=== PATIENT | male | born 1960 | race Caucasian/White ===

== ENCOUNTER 2019-06-16 14:41 | Emergency (ER) | payer SELFPAY ==
[~2019-06-16] VITALS: Ht 170.2 cm; Wt 95.0 kg
[2019-06-16 17:07] VITALS: BP 123/83
== END 2019-06-16 17:08 | disposition home or self-care (01) ==
LOC: ER 14:47
DX: R04.0 Epistaxis (principal)
CPT/HCPCS: 99282

== ENCOUNTER 2020-08-05 09:19 | Emergency (ER) | payer MEDICAID ==
[~2020-08-05] VITALS: Ht 167.6 cm; Wt 73.0 kg
[2020-08-05] MEDS ORDERED: CYCLOBENZAPRINE 10MG TABLET PO ONE (09:45)
[2020-08-05] MEDS ORDERED: KETOROLAC 30MG/ML VIAL IM ONE (09:45)
[2020-08-05 10:24] VITALS: BP 132/79
== END 2020-08-05 10:25 | disposition home or self-care (01) ==
LOC: ER 09:19
DX: M25.511 Pain in right shoulder (principal)
CPT/HCPCS: 73030; 96372; 99283; J1885

== ENCOUNTER 2020-08-07 15:02 | Emergency (ER) | payer MEDICAID ==
[~2020-08-07] VITALS: Ht 167.6 cm; Wt 75.0 kg
[2020-08-07 15:28] VITALS: BP 142/85
== END 2020-08-07 16:52 | disposition home or self-care (01) ==
LOC: ER 15:03
DX: Z02.89 Encounter for other administrative examinations (principal); Z88.0 Allergy status to penicillin; Z88.3 Allergy status to other anti-infective agents
CPT/HCPCS: 99281

== ENCOUNTER 2021-04-14 09:23 | Emergency (ER) | payer MEDICAID ==
[~2021-04-14] VITALS: Ht 170.2 cm; Wt 84.0 kg
[2021-04-14] MEDS ORDERED: ACETAMINOPHEN 325MG TABLET PO ONE (09:45)
[2021-04-14 10:00] VITALS: BP 120/82
[2021-04-14] MEDS ORDERED: ALBU6.7H9 INH (10:52)
[2021-04-14] MEDS ORDERED: AZIT250T12 MT (10:52)
[2021-04-14] MEDS ORDERED: IBUP-2030 MT (10:52)
[2021-04-14] MEDS ORDERED: DEX4 MT (10:52)
== END 2021-04-14 11:45 | disposition home or self-care (01) ==
LOC: ER 09:23
DX: U07.1 COVID-19 (principal); J12.82 Pneumonia due to coronavirus disease 2019; R07.89 Other chest pain; Z88.0 Allergy status to penicillin
CPT/HCPCS: 71045; 93005; 99285; C9803; U0003; U0005; Z7610

== ENCOUNTER 2021-04-18 08:04 | Inpatient (IN) | payer MEDICAID, OTHER ==
[~2021-04-18] VITALS: Ht 165.1 cm; Wt 99.8 kg
[~2021-04-18 08:04] MED LIST: ALBU6.7H9 INH; AZIT250T12 MT; DEX4 MT; IBUP-2030 MT
[2021-04-18] MEDS ORDERED: ACETAMINOPHEN 325MG TABLET PO STA (08:24)
[2021-04-18 09:02] LABS: BASOPHILS % 0.3 % (0.0-2.0); HEMATOCRIT. 41.6 % (42.0-52.0); HEMOGLOBIN. 14.4 g/dL (14.0-18.0); LYMPHOCYTES % 9.8 % (20.0-50.0); MEAN CORPUSCULAR HEMOGLOBIN 31.2 pg (28.0-32.0); MEAN CORPUSCULAR VOLUME 90.3 fL (80.0-94.0); MEAN PLATELET VOLUME 9.2 fl (7.4-10.4); MONOCYTES % 6.7 % (2.0-8.0); NEUTROPHILS % 83.2 % (40.0-76.0); PLATELET 208 x1000/uL (130-400); RED CELL DISTRIBUTION WIDTH 12.8 % (11.6-14.6)
[2021-04-18 09:12] LABS: CHLORIDE 102 mEq/L (98-107)
[2021-04-18] MEDS ORDERED: ACETAMINOPHEN 500MG TABLET PO NR (09:15)
[2021-04-18 09:20] LABS: CREATINE KINASE 30 IU/L (39-308)
[2021-04-18 09:35] LABS: BG BASE EXCESS 1.4 mmol/L (-2.0-2.0); BG CARBOXYHEMOGLOBIN 1.3 % (0.5-1.5); BG DEOXYHEMOGLOBIN 4.5 % (0.0-5.0); BG FRACTION INSPIRED OXYGEN 32; BG HCO3 ACT 25.2 mmol/L (22.0-26.0); BG METHEMOGLOBIN 0.1 % (0.0-1.5); BG OXYGEN SATURATION 95.4 % (92.0-98.5); BG OXYHEMOGLOBIN 94.1 % (94.0-97.0); BG PCO2 37.3 mmHg (35.0-45.0); BG PH 7.447 (7.350-7.450); BG PO2 79.8 mmHg (75.0-100.0); BG SAMPLE SITE RIGHT RADIAL; BG TOTAL HEMOGLOBIN 14.4 g/dL (12.0-18.0); BG VENT MODE NASAL CANNULA
[2021-04-18 11:58] LABS: CLARITY URINE CLEAR (CLEAR); COLOR URINE YELLOW (YELLOW); KETONES URINE 3+ (NEGATIVE); LEUKOCYTE ESTERASE URINE NEGATIVE (NEGATIVE); NITRITE URINE NEGATIVE (NEGATIVE); OCCULT BLOOD URINE NEGATIVE (NEGATIVE); PH URINE 5.5 (4.5-8.0); PROTEIN URINE 1+ (NEGATIVE); SPECIFIC GRAVITY URINE 1.044 (1.005-1.030)
[2021-04-18] MEDS ORDERED: DOCUSATE SODIUM 100MG CAPSULE PO PRN (15:00)
[2021-04-18] MEDS ORDERED: LORAZEPAM 0.5MG TABLET PO PRN (15:00)
[2021-04-18] MEDS ORDERED: ONDANSETRON HCL 4MG/2ML INJ IV PRN (15:00)
[2021-04-18] MEDS ORDERED: AZITHROMYCIN 500 MG in DEXT 5% WATER 250 ML IV SCH (15:00)
[2021-04-18] MEDS ORDERED: HYDROCODONE/APAP 7.5/325MG 1 TAB TABLET PO PRN (15:00)
[2021-04-18] MEDS ORDERED: NITROGLYCERIN 0.4MG TABLET SL SL PRN (15:00)
[2021-04-18] MEDS ORDERED: CLONIDINE 0.1MG TABLET PO PRN (15:00)
[2021-04-18] MEDS ORDERED: NALOXONE HCL 0.4MG/ML VIAL IV PRN (15:00)
[2021-04-18] MEDS ORDERED: CEFTRIAXONE 1 G PREMIX 50 ML IV NR (15:00)
[2021-04-18 15:05] LABS: D-DIMER 1.07 mg/L FEU (<0.50); INR 1.1; PROTHROMBIN TIME 11.3 sec (9.6-11.0)
[2021-04-18] MEDS ORDERED: ALBUTEROL 6.7GM HFA INHALER ORI PRN (16:00)
[2021-04-18 16:03] VITALS: BP 143/83
[2021-04-18] MEDS: DEXAMETHASONE 10 MG/ML VIAL IV SCH (16:15)
[2021-04-18] MEDS: ENOXAPARIN 40MG/0.4ML SYR SUBCUT SCH (16:15)
[2021-04-18 16:53] VITALS: BP 143/83
[2021-04-18] MEDS ORDERED: DEXTROSE 50% WATER 50ML SYRINGE IV PRN ×2 (17:00→21:45)
[2021-04-18] MEDS: CEFTRIAXONE 1,000 MG in DEXTROSE 5% WATER 50 ML IV SCH (17:34)
[2021-04-18] MEDS ORDERED: BLOOD SUGAR DIAGNOSTIC STRIP TEST SCH (17:40)
[2021-04-18] MEDS: AZITHROMYCIN 500 MG in DEXT 5% WATER 250 ML IV SCH (17:46)
[2021-04-18] MEDS ORDERED: INSULIN LISPRO 100 UNITS/ML SUBCUT SCH (18:10)
[2021-04-18 20:00] VITALS: BP 146/87
[2021-04-18] MEDS ORDERED: INSULIN GLARGINE UD 100 UNITS/ML SYR SUBCUT SCH (23:00)
[2021-04-19] VITALS: BP 148/83
[2021-04-19 03:52] LABS: CHLORIDE 107 mEq/L (98-107)
[2021-04-19 03:54] LABS: HEMATOCRIT. 41.4 % (42.0-52.0); MEAN CORPUSCULAR VOLUME 91.7 fL (80.0-94.0); MEAN PLATELET VOLUME 8.9 fl (7.4-10.4); PLATELET 230 x1000/uL (130-400); RED BLOOD CELL COUNT 4.52 mill/uL (4.7-6.1); RED CELL DISTRIBUTION WIDTH 12.7 % (11.6-14.6)
[2021-04-19 04:00] VITALS: BP 111/66
[2021-04-19] MEDS: BLOOD SUGAR DIAGNOSTIC STRIP TEST SCH ×4 (07:22→21:00)
[2021-04-19 08:00] VITALS: BP 129/78
[2021-04-19] MEDS: DEXAMETHASONE 10 MG/ML VIAL IV SCH (08:05)
[2021-04-19] MEDS: INSULIN LISPRO 100 UNITS/ML SUBCUT SCH ×4 (08:06→22:06)
[2021-04-19] MEDS ORDERED: CEFTRIAXONE 1,000 MG in DEXTROSE 5% WATER 50 ML IV SCH (11:00)
[2021-04-19 12:00] VITALS: BP 143/91
[2021-04-19 12:31] LABS: PLATELET ESTIMATE NORMAL
[2021-04-19] MEDS ORDERED: ERYT1OIN6 EACHEYE (13:06)
[2021-04-19] MEDS ORDERED: METH2.5T PO (13:06)
[2021-04-19] MEDS ORDERED: OMEP20CA14 PO (13:06)
[2021-04-19] MEDS ORDERED: SULF500T8 PO (13:06)
[2021-04-19] MEDS ORDERED: FOLI-43 PO (13:06)
[2021-04-19] MEDS ORDERED: CYCL30DR EACHEYE (13:06)
[2021-04-19] MEDS ORDERED: ATOR20TA65 PO (13:06)
[2021-04-19] MEDS ORDERED: DICL25TA2 PO (13:06)
[2021-04-19] MEDS: ENOXAPARIN 40MG/0.4ML SYR SUBCUT SCH (14:05)
[2021-04-19 16:00] VITALS: BP 150/92
[2021-04-19] MEDS: CEFTRIAXONE 1,000 MG in DEXTROSE 5% WATER 50 ML IV SCH (16:32)
[2021-04-19] MEDS: BENZONATATE 100MG CAPSULE PO PRN (17:31)
[2021-04-19] MEDS: AZITHROMYCIN 500 MG in DEXT 5% WATER 250 ML IV SCH (17:32)
[2021-04-19 20:00] VITALS: BP 144/82
[2021-04-19] MEDS: ACETAMINOPHEN 325MG TABLET PO PRN (22:05)
[2021-04-19] MEDS: INSULIN GLARGINE UD 100 UNITS/ML SYR SUBCUT SCH (22:07)
[2021-04-20] VITALS: BP 142/85
[2021-04-20 04:00] VITALS: BP 153/96
[2021-04-20] MEDS: BLOOD SUGAR DIAGNOSTIC STRIP TEST SCH ×4 (07:40→20:22)
[2021-04-20 08:00] VITALS: BP 159/82
[2021-04-20] MEDS: DEXAMETHASONE 10 MG/ML VIAL IV SCH (08:36)
[2021-04-20] MEDS: INSULIN LISPRO 100 UNITS/ML SUBCUT SCH ×4 (08:36→20:43)
[2021-04-20] MEDS: BENZONATATE 100MG CAPSULE PO PRN (09:31)
[2021-04-20] MEDS: INSULIN GLARGINE UD 100 UNITS/ML SYR SUBCUT SCH ×2 (09:36→21:01)
[2021-04-20] MEDS: ENOXAPARIN 40MG/0.4ML SYR SUBCUT SCH (15:07)
[2021-04-20] MEDS: CEFTRIAXONE 1,000 MG in DEXTROSE 5% WATER 50 ML IV SCH (15:18)
[2021-04-20 16:00] VITALS: BP 130/93
[2021-04-20] MEDS: AZITHROMYCIN 500 MG in DEXT 5% WATER 250 ML IV SCH (17:40)
[2021-04-20 20:00] VITALS: BP 136/79
[2021-04-20] MEDS ORDERED: INSULIN LISPRO 100 UNITS/ML SUBCUT NR (22:00)
[2021-04-21] VITALS: BP 146/91
[2021-04-21 04:00] VITALS: BP 142/75
[2021-04-21 07:07] LABS: BASOPHILS % 0.2 % (0.0-2.0); HEMATOCRIT. 41.3 % (42.0-52.0); HEMOGLOBIN. 14.1 g/dL (14.0-18.0); LYMPHOCYTES % 8.6 % (20.0-50.0); MEAN CORPUSCULAR HEMOGLOBIN 30.6 pg (28.0-32.0); MEAN CORPUSCULAR VOLUME 89.8 fL (80.0-94.0); MEAN PLATELET VOLUME 9.3 fl (7.4-10.4); MONOCYTES % 8.9 % (2.0-8.0); NEUTROPHILS % 82.3 % (40.0-76.0); PLATELET 299 x1000/uL (130-400); RED BLOOD CELL COUNT 4.61 mill/uL (4.7-6.1); RED CELL DISTRIBUTION WIDTH 12.7 % (11.6-14.6)
[2021-04-21] MEDS: BLOOD SUGAR DIAGNOSTIC STRIP TEST SCH ×4 (07:40→21:25)
[2021-04-21 07:55] LABS: CHLORIDE 106 mEq/L (98-107)
[2021-04-21 08:00] VITALS: BP 109/68
[2021-04-21] MEDS: INSULIN LISPRO 100 UNITS/ML SUBCUT SCH ×4 (08:54→21:28)
[2021-04-21] MEDS: DEXAMETHASONE 10 MG/ML VIAL IV SCH (09:43)
[2021-04-21] MEDS: INSULIN GLARGINE UD 100 UNITS/ML SYR SUBCUT SCH ×2 (10:43→21:29)
[2021-04-21 12:00] VITALS: BP 132/78
[2021-04-21 16:00] VITALS: BP 144/93
[2021-04-21] MEDS: CEFTRIAXONE 1,000 MG in DEXTROSE 5% WATER 50 ML IV SCH (16:47)
[2021-04-21] MEDS: AZITHROMYCIN 500 MG in DEXT 5% WATER 250 ML IV SCH (17:37)
[2021-04-21] MEDS: ENOXAPARIN 30MG/0.3ML SYR SUBCUT SCH (17:56)
[2021-04-21 20:00] VITALS: BP 140/87
[2021-04-22] VITALS: BP 137/86
[2021-04-22 04:00] VITALS: BP 132/88
[2021-04-22 06:00] LABS: BASOPHILS % 0.4 % (0.0-2.0); HEMATOCRIT. 44.2 % (42.0-52.0); HEMOGLOBIN. 14.8 g/dL (14.0-18.0); LYMPHOCYTES % 11.4 % (20.0-50.0); MEAN CORPUSCULAR HEMOGLOBIN 30.8 pg (28.0-32.0); MEAN PLATELET VOLUME 9.3 fl (7.4-10.4); MONOCYTES % 9.5 % (2.0-8.0); NEUTROPHILS % 78.7 % (40.0-76.0); PLATELET 301 x1000/uL (130-400); RED CELL DISTRIBUTION WIDTH 12.6 % (11.6-14.6)
[2021-04-22 06:07] LABS: CHLORIDE 104 mEq/L (98-107)
[2021-04-22] MEDS: ENOXAPARIN 30MG/0.3ML SYR SUBCUT SCH ×2 (06:34→17:23)
[2021-04-22] MEDS: BLOOD SUGAR DIAGNOSTIC STRIP TEST SCH ×4 (07:14→21:56)
[2021-04-22 08:00] VITALS: BP 140/80
[2021-04-22] MEDS: DEXAMETHASONE 10 MG/ML VIAL IV SCH (08:56)
[2021-04-22] MEDS: BENZONATATE 100MG CAPSULE PO PRN ×2 (08:57→23:25)
[2021-04-22] MEDS: INSULIN LISPRO 100 UNITS/ML SUBCUT SCH ×4 (08:58→22:01)
[2021-04-22 09:03] LABS: BG BASE EXCESS 4.2 mmol/L (-2.0-2.0); BG CARBOXYHEMOGLOBIN 0.2 % (0.5-1.5); BG DEOXYHEMOGLOBIN 8.6 % (0.0-5.0); BG HCO3 ACT 28.5 mmol/L (22.0-26.0); BG OXYGEN SATURATION 91.4 % (92.0-98.5); BG OXYHEMOGLOBIN 91.2 % (94.0-97.0); BG PCO2 41.3 mmHg (35.0-45.0); BG PH 7.456 (7.350-7.450); BG PO2 61.3 mmHg (75.0-100.0); BG SAMPLE SITE RIGHT RADIAL; BG TOTAL HEMOGLOBIN 15.8 g/dL (12.0-18.0); BG VENT MODE MASK - BIPAP
[2021-04-22] MEDS: INSULIN GLARGINE UD 100 UNITS/ML SYR SUBCUT SCH ×2 (10:22→22:00)
[2021-04-22 12:00] VITALS: BP 136/86
[2021-04-22 16:00] VITALS: BP 146/95
[2021-04-22] MEDS: CEFTRIAXONE 1,000 MG in DEXTROSE 5% WATER 50 ML IV SCH (16:45)
[2021-04-22] MEDS: AZITHROMYCIN 500 MG in DEXT 5% WATER 250 ML IV SCH (17:30)
[2021-04-22 20:00] VITALS: BP 153/92
[2021-04-23] VITALS: BP 123/81
[2021-04-23 04:00] VITALS: BP 124/83
[2021-04-23] MEDS: ENOXAPARIN 30MG/0.3ML SYR SUBCUT SCH ×2 (05:34→17:48)
[2021-04-23 06:15] LABS: CHLORIDE 102 mEq/L (98-107)
[2021-04-23 06:21] LABS: BASOPHILS % 0.2 % (0.0-2.0); EOSINOPHILS % 0.1 % (0.0-5.0); HEMATOCRIT. 43.1 % (42.0-52.0); HEMOGLOBIN. 14.7 g/dL (14.0-18.0); LYMPHOCYTES % 11.7 % (20.0-50.0); MEAN CORPUSCULAR VOLUME 90.8 fL (80.0-94.0); MEAN PLATELET VOLUME 9.5 fl (7.4-10.4); MONOCYTES % 6.1 % (2.0-8.0); NEUTROPHILS % 81.9 % (40.0-76.0); PLATELET 282 x1000/uL (130-400); RED BLOOD CELL COUNT 4.74 mill/uL (4.7-6.1); RED CELL DISTRIBUTION WIDTH 12.6 % (11.6-14.6)
[2021-04-23 08:00] VITALS: BP 114/65
[2021-04-23] MEDS: BLOOD SUGAR DIAGNOSTIC STRIP TEST SCH ×4 (08:36→21:00)
[2021-04-23] MEDS: INSULIN LISPRO 100 UNITS/ML SUBCUT SCH ×4 (08:38→21:23)
[2021-04-23] MEDS: DEXAMETHASONE 10 MG/ML VIAL IV SCH (08:38)
[2021-04-23] MEDS: INSULIN GLARGINE UD 100 UNITS/ML SYR SUBCUT SCH ×2 (10:55→21:23)
[2021-04-23 12:00] VITALS: BP 127/77
[2021-04-23] MEDS ORDERED: HYDROCODONE/ACETAMINOPHEN 5/325MG TABLET PO PRN (12:30)
[2021-04-23] MEDS: IVERMECTIN 3 MG TABLET PO SCH (12:43)
[2021-04-23 16:00] VITALS: BP 137/82
[2021-04-23 16:20] LABS: BG BASE EXCESS 3.6 mmol/L (-2.0-2.0); BG CARBOXYHEMOGLOBIN 0.1 % (0.5-1.5); BG DEOXYHEMOGLOBIN 7.7 % (0.0-5.0); BG FRACTION INSPIRED OXYGEN 100; BG HCO3 ACT 27.5 mmol/L (22.0-26.0); BG METHEMOGLOBIN 0.3 % (0.0-1.5); BG OXYGEN SATURATION 92.3 % (92.0-98.5); BG OXYHEMOGLOBIN 91.9 % (94.0-97.0); BG PCO2 39.5 mmHg (35.0-45.0); BG PH 7.461 (7.350-7.450); BG PO2 63.9 mmHg (75.0-100.0); BG SAMPLE SITE RIGHT RADIAL; BG TOTAL HEMOGLOBIN 14.6 g/dL (12.0-18.0); BG VENT MODE MASK - BIPAP
[2021-04-23 20:00] VITALS: BP 126/83
[2021-04-24] VITALS: BP 139/88
[2021-04-24 04:00] VITALS: BP 123/85
[2021-04-24] MEDS: ENOXAPARIN 30MG/0.3ML SYR SUBCUT SCH ×2 (06:08→17:18)
[2021-04-24 07:28] LABS: BASOPHILS % 0.3 % (0.0-2.0); EOSINOPHILS % 0.4 % (0.0-5.0); HEMATOCRIT. 41.2 % (42.0-52.0); LYMPHOCYTES % 11.8 % (20.0-50.0); MEAN CORPUSCULAR HEMOGLOBIN 30.5 pg (28.0-32.0); MEAN CORPUSCULAR VOLUME 89.8 fL (80.0-94.0); MONOCYTES % 4.5 % (2.0-8.0); PLATELET 257 x1000/uL (130-400); RED BLOOD CELL COUNT 4.59 mill/uL (4.7-6.1); RED CELL DISTRIBUTION WIDTH 12.3 % (11.6-14.6)
[2021-04-24] MEDS: BLOOD SUGAR DIAGNOSTIC STRIP TEST SCH ×4 (07:28→21:32)
[2021-04-24 07:42] LABS: CHLORIDE 101 mEq/L (98-107)
[2021-04-24 08:00] VITALS: BP 118/71
[2021-04-24] MEDS: DEXAMETHASONE 10 MG/ML VIAL IV SCH (08:10)
[2021-04-24] MEDS: IVERMECTIN 3 MG TABLET PO SCH (08:11)
[2021-04-24] MEDS: INSULIN LISPRO 100 UNITS/ML SUBCUT SCH ×4 (08:11→21:32)
[2021-04-24] MEDS: INSULIN GLARGINE UD 100 UNITS/ML SYR SUBCUT SCH ×2 (09:10→21:32)
[2021-04-24 12:00] VITALS: BP 140/83
[2021-04-24] MEDS ORDERED: INSULIN GLARGINE UD 100 UNITS/ML SYR SUBCUT SCH (14:30)
[2021-04-24 16:00] VITALS: BP 154/97
[2021-04-24 20:00] VITALS: BP 141/79
[2021-04-25] VITALS: BP 127/84
[2021-04-25 04:00] VITALS: BP 134/90
[2021-04-25] MEDS: ENOXAPARIN 30MG/0.3ML SYR SUBCUT SCH ×2 (06:20→17:31)
[2021-04-25] MEDS: BLOOD SUGAR DIAGNOSTIC STRIP TEST SCH ×4 (07:15→21:24)
[2021-04-25] MEDS: INSULIN LISPRO 100 UNITS/ML SUBCUT SCH ×4 (07:15→21:00)
[2021-04-25 08:00] VITALS: BP 135/84
[2021-04-25] MEDS: IVERMECTIN 3 MG TABLET PO SCH (08:40)
[2021-04-25] MEDS: DEXAMETHASONE 10 MG/ML VIAL IV SCH (08:41)
[2021-04-25] MEDS: INSULIN GLARGINE UD 100 UNITS/ML SYR SUBCUT SCH ×2 (09:37→22:04)
[2021-04-25] MEDS ORDERED: GUAIFENESIN-DM 200MG-20MG/10ML UDC PO PRN (11:30)
[2021-04-25 12:00] VITALS: BP 135/84
[2021-04-25] MEDS: BENZONATATE 100MG CAPSULE PO SCH ×2 (12:14→22:01)
[2021-04-25 16:00] VITALS: BP 143/73
[2021-04-25 20:00] VITALS: BP 123/81
[2021-04-26] VITALS: BP 134/88
[2021-04-26 04:00] VITALS: BP 104/80
[2021-04-26] MEDS: ENOXAPARIN 30MG/0.3ML SYR SUBCUT SCH ×2 (06:14→17:06)
[2021-04-26] MEDS: BENZONATATE 100MG CAPSULE PO SCH ×3 (06:14→21:19)
[2021-04-26 08:00] VITALS: BP 126/71
[2021-04-26] MEDS: INSULIN LISPRO 100 UNITS/ML SUBCUT SCH ×4 (08:10→21:19)
[2021-04-26] MEDS: BLOOD SUGAR DIAGNOSTIC STRIP TEST SCH ×4 (08:10→20:59)
[2021-04-26] MEDS: IVERMECTIN 3 MG TABLET PO SCH (08:54)
[2021-04-26] MEDS: DEXAMETHASONE 10 MG/ML VIAL IV SCH (10:59)
[2021-04-26] MEDS: INSULIN GLARGINE UD 100 UNITS/ML SYR SUBCUT SCH ×2 (11:04→22:36)
[2021-04-26 12:00] VITALS: BP 147/96
[2021-04-26] MEDS: ACETAMINOPHEN 325MG TABLET PO PRN (13:07)
[2021-04-26 16:00] VITALS: BP 118/82
[2021-04-26 20:00] VITALS: BP 134/85
[2021-04-27 00:29] VITALS: BP 136/81
[2021-04-27 04:00] VITALS: BP 114/70
[2021-04-27] MEDS: ENOXAPARIN 30MG/0.3ML SYR SUBCUT SCH ×2 (05:30→17:06)
[2021-04-27] MEDS: BENZONATATE 100MG CAPSULE PO SCH ×3 (05:30→21:39)
[2021-04-27 06:11] LABS: HEMOGLOBIN. 14.4 g/dL (14.0-18.0); MEAN CORPUSCULAR HEMOGLOBIN 30.5 pg (28.0-32.0); MEAN CORPUSCULAR VOLUME 91.2 fL (80.0-94.0); MEAN PLATELET VOLUME 9.2 fl (7.4-10.4); PLATELET 350 x1000/uL (130-400); RED BLOOD CELL COUNT 4.71 mill/uL (4.7-6.1); RED CELL DISTRIBUTION WIDTH 12.6 % (11.6-14.6)
[2021-04-27 06:21] LABS: CHLORIDE 105 mEq/L (98-107)
[2021-04-27] MEDS: BLOOD SUGAR DIAGNOSTIC STRIP TEST SCH ×4 (07:36→20:50)
[2021-04-27 08:00] VITALS: BP 119/73
[2021-04-27] MEDS: DEXAMETHASONE 10 MG/ML VIAL IV SCH (08:34)
[2021-04-27] MEDS: IVERMECTIN 3 MG TABLET PO SCH (08:34)
[2021-04-27] MEDS: INSULIN LISPRO 100 UNITS/ML SUBCUT SCH ×4 (08:34→20:50)
[2021-04-27 08:45] LABS: BG BASE EXCESS 2.5 mmol/L (-2.0-2.0); BG CARBOXYHEMOGLOBIN 0.8 % (0.5-1.5); BG DEOXYHEMOGLOBIN 3.9 % (0.0-5.0); BG FRACTION INSPIRED OXYGEN 100; BG HCO3 ACT 26.7 mmol/L (22.0-26.0); BG METHEMOGLOBIN 0.1 % (0.0-1.5); BG OXYGEN SATURATION 96.1 % (92.0-98.5); BG OXYHEMOGLOBIN 95.2 % (94.0-97.0); BG PCO2 40.1 mmHg (35.0-45.0); BG PH 7.442 (7.350-7.450); BG PO2 82.4 mmHg (75.0-100.0); BG SAMPLE SITE RIGHT RADIAL; BG TOTAL HEMOGLOBIN 15.1 g/dL (12.0-18.0); BG TOTAL RESPIRATORY RATE 38 b/min; BG VENT MODE MASK - BIPAP
[2021-04-27] MEDS: INSULIN GLARGINE UD 100 UNITS/ML SYR SUBCUT SCH ×2 (11:26→21:40)
[2021-04-27 12:00] VITALS: BP 126/75
[2021-04-27 16:00] VITALS: BP 118/76
[2021-04-27 20:00] VITALS: BP 127/77
[2021-04-27] MEDS: CEFEPIME 2,000 MG in DEXT 5% WATER 100 ML IV SCH (20:50)
[2021-04-28] VITALS (8 sets, daily range): BP systolic 108–166; BP diastolic 66–96
[2021-04-28 00:08] LABS: PLATELET ESTIMATE NORMAL
[2021-04-28] MEDS: BLOOD SUGAR DIAGNOSTIC STRIP TEST SCH ×4 (05:36→20:38)
[2021-04-28] MEDS: BENZONATATE 100MG CAPSULE PO SCH ×3 (05:36→22:09)
[2021-04-28] MEDS: ENOXAPARIN 30MG/0.3ML SYR SUBCUT SCH ×2 (05:36→17:28)
[2021-04-28] MEDS: INSULIN LISPRO 100 UNITS/ML SUBCUT SCH ×4 (07:16→20:39)
[2021-04-28] MEDS: CEFEPIME 2,000 MG in DEXT 5% WATER 100 ML IV SCH ×2 (08:01→20:38)
[2021-04-28] MEDS: DEXAMETHASONE 10 MG/ML VIAL IV SCH (08:01)
[2021-04-28] MEDS: IVERMECTIN 3 MG TABLET PO SCH (08:01)
[2021-04-28] MEDS ORDERED: SUCCINYLCHOLINE CHLORIDE 200MG/10ML IV ONE (08:38)
[2021-04-28] MEDS ORDERED: ETOMIDATE 2MG/ML 10ML VIAL IV ONE (08:38)
[2021-04-28] MEDS: INSULIN GLARGINE UD 100 UNITS/ML SYR SUBCUT SCH ×2 (10:35→22:10)
[2021-04-28 22:29] LABS: BG BASE EXCESS 2.9 mmol/L (-2.0-2.0); BG CARBOXYHEMOGLOBIN 0.8 % (0.5-1.5); BG DEOXYHEMOGLOBIN 8.8 % (0.0-5.0); BG FRACTION INSPIRED OXYGEN 100; BG METHEMOGLOBIN 0.2 % (0.0-1.5); BG OXYGEN SATURATION 91.1 % (92.0-98.5); BG OXYHEMOGLOBIN 90.2 % (94.0-97.0); BG PCO2 44.5 mmHg (35.0-45.0); BG PH 7.417 (7.350-7.450); BG SAMPLE SITE RIGHT BRACHIAL; BG TOTAL HEMOGLOBIN 15.7 g/dL (12.0-18.0); BG TOTAL RESPIRATORY RATE 40 b/min; BG VENT MODE MASK - BIPAP
[2021-04-29] VITALS (49 sets, daily range): BP systolic 94–175; BP diastolic 30–116
[2021-04-29] MEDS: MIDAZOLAM HCL 100 MG in SODIUM CHLORIDE 0.9% 80 ML IV PRN (00:08)
[2021-04-29] MEDS: FENTANYL CITRATE/PF 2,500 MCG in SODIUM CHLORIDE 0.9% 200 ML IV PRN (00:30)
[2021-04-29 00:52] LABS: BG BASE EXCESS 0.6 mmol/L (-2.0-2.0); BG DEOXYHEMOGLOBIN 11.3 % (0.0-5.0); BG FRACTION INSPIRED OXYGEN 100; BG HCO3 ACT 26.9 mmol/L (22.0-26.0); BG METHEMOGLOBIN 0.2 % (0.0-1.5); BG OXYGEN SATURATION 88.6 % (92.0-98.5); BG OXYHEMOGLOBIN 87.5 % (94.0-97.0); BG PCO2 49.1 mmHg (35.0-45.0); BG PH 7.357 (7.350-7.450); BG PO2 59.2 mmHg (75.0-100.0); BG SAMPLE SITE RIGHT BRACHIAL; BG TOTAL RESPIRATORY RATE 35 b/min; BG VENT MODE VENT - AC
[2021-04-29] MEDS: ENOXAPARIN 30MG/0.3ML SYR SUBCUT SCH ×2 (05:22→18:30)
[2021-04-29] MEDS: BENZONATATE 100MG CAPSULE PO SCH (05:30)
[2021-04-29 05:56] LABS: HEMATOCRIT. 44.1 % (42.0-52.0); HEMOGLOBIN. 14.9 g/dL (14.0-18.0); MEAN CORPUSCULAR HEMOGLOBIN 30.7 pg (28.0-32.0); MEAN CORPUSCULAR VOLUME 90.8 fL (80.0-94.0); PLATELET 321 x1000/uL (130-400); RED BLOOD CELL COUNT 4.86 mill/uL (4.7-6.1)
[2021-04-29 06:02] LABS: CHLORIDE 102 mEq/L (98-107)
[2021-04-29] MEDS: BLOOD SUGAR DIAGNOSTIC STRIP TEST SCH ×5 (07:50→23:13)
[2021-04-29] MEDS: INSULIN LISPRO 100 UNITS/ML SUBCUT SCH ×5 (08:20→23:36)
[2021-04-29] MEDS: DEXAMETHASONE 10 MG/ML VIAL IV SCH (09:11)
[2021-04-29] MEDS: CEFEPIME 2,000 MG in DEXT 5% WATER 100 ML IV SCH ×2 (09:11→21:42)
[2021-04-29 09:12] LABS: BG BASE EXCESS 1.5 mmol/L (-2.0-2.0); BG DEOXYHEMOGLOBIN 10.9 % (0.0-5.0); BG FRACTION INSPIRED OXYGEN 100; BG METHEMOGLOBIN 0.2 % (0.0-1.5); BG OXYHEMOGLOBIN 87.9 % (94.0-97.0); BG PCO2 45.5 mmHg (35.0-45.0); BG PH 7.391 (7.350-7.450); BG PO2 59.8 mmHg (75.0-100.0); BG SAMPLE SITE RIGHT BRACHIAL; BG TOTAL HEMOGLOBIN 16.5 g/dL (12.0-18.0); BG TOTAL RESPIRATORY RATE 43 b/min; BG VENT MODE VENT - AC
[2021-04-29] MEDS ORDERED: LIDOCAINE HCL 1% 20ML VIAL (Pyxis) INJ ONE (10:05)
[2021-04-29] MEDS: DEXT 5%/0.9% NACL 1,000 ML IV SCH ×2 (11:11→23:33)
[2021-04-29] MEDS: INSULIN GLARGINE UD 100 UNITS/ML SYR SUBCUT SCH ×2 (11:12→22:32)
[2021-04-29 21:33] LABS: PLATELET ESTIMATE NORMAL
[2021-04-30] VITALS (49 sets, daily range): BP systolic 92–159; BP diastolic 34–83
[2021-04-30 05:56] LABS: HEMATOCRIT. 44.5 % (42.0-52.0); HEMOGLOBIN. 14.8 g/dL (14.0-18.0); MEAN CORPUSCULAR HEMOGLOBIN 30.6 pg (28.0-32.0); MEAN CORPUSCULAR VOLUME 92.1 fL (80.0-94.0); MEAN PLATELET VOLUME 9.7 fl (7.4-10.4); PLATELET 265 x1000/uL (130-400); RED BLOOD CELL COUNT 4.83 mill/uL (4.7-6.1); RED CELL DISTRIBUTION WIDTH 12.6 % (11.6-14.6)
[2021-04-30 06:03] LABS: CHLORIDE 111 mEq/L (98-107)
[2021-04-30] MEDS: BLOOD SUGAR DIAGNOSTIC STRIP TEST SCH ×3 (06:33→17:30)
[2021-04-30] MEDS: ENOXAPARIN 30MG/0.3ML SYR SUBCUT SCH ×2 (06:34→17:33)
[2021-04-30] MEDS: INSULIN LISPRO 100 UNITS/ML SUBCUT SCH ×3 (06:46→17:34)
[2021-04-30] MEDS: CEFEPIME 2,000 MG in DEXT 5% WATER 100 ML IV SCH (08:32)
[2021-04-30] MEDS: DEXAMETHASONE 10 MG/ML VIAL IV SCH (08:32)
[2021-04-30 09:42] LABS: BG CARBOXYHEMOGLOBIN 0.3 % (0.5-1.5); BG DEOXYHEMOGLOBIN 9.1 % (0.0-5.0); BG FRACTION INSPIRED OXYGEN 100; BG HCO3 ACT 23.3 mmol/L (22.0-26.0); BG METHEMOGLOBIN 0.3 % (0.0-1.5); BG OXYGEN SATURATION 90.8 % (92.0-98.5); BG OXYHEMOGLOBIN 90.3 % (94.0-97.0); BG PCO2 41.8 mmHg (35.0-45.0); BG PH 7.364 (7.350-7.450); BG PO2 64.8 mmHg (75.0-100.0); BG SAMPLE SITE RIGHT RADIAL; BG VENT MODE VENT - PRVC
[2021-04-30] MEDS: INSULIN GLARGINE UD 100 UNITS/ML SYR SUBCUT SCH ×2 (10:09→21:42)
[2021-04-30] MEDS: PANTOPRAZOLE SODIUM 40 MG/VIAL IV SCH (10:09)
[2021-04-30] MEDS: MIDAZOLAM HCL 100 MG in SODIUM CHLORIDE 0.9% 80 ML IV PRN (10:41)
[2021-04-30 11:57] LABS: PLATELET ESTIMATE NORMAL
[2021-04-30] MEDS ORDERED: SODIUM CHLORIDE 0.9% 1,000 ML IV SCH (12:15)
[2021-04-30] MEDS: FENTANYL CITRATE/PF 2,500 MCG in SODIUM CHLORIDE 0.9% 200 ML IV PRN (14:17)
[2021-04-30] MEDS: ACETAMINOPHEN 325MG TABLET PO PRN (15:27)
[2021-04-30 18:52] LABS: CHLORIDE 112 mEq/L (98-107)
[2021-04-30] MEDS: MEROPENEM 1,000 MG in SODIUM CHLORIDE 0.9% 100 ML IV SCH (21:18)
[2021-04-30] MEDS ORDERED: SODIUM POLYSTYRENE SULFONATE 15 G/60 ML BOT PO NR (23:00)
[2021-04-30] MEDS: SODIUM CHLORIDE 0.45% 1,000 ML IV SCH (23:09)
[2021-05-01] VITALS (48 sets, daily range): BP systolic 93–128; BP diastolic 64–80
[2021-05-01] MEDS: BLOOD SUGAR DIAGNOSTIC STRIP TEST SCH ×5 (00:29→23:47)
[2021-05-01] MEDS: INSULIN LISPRO 100 UNITS/ML SUBCUT SCH ×5 (00:34→23:47)
[2021-05-01] MEDS: ACETAMINOPHEN 325MG TABLET PO PRN (02:56)
[2021-05-01] MEDS: MEROPENEM 1,000 MG in SODIUM CHLORIDE 0.9% 100 ML IV SCH ×3 (04:46→20:42)
[2021-05-01 06:41] LABS: HEMATOCRIT. 42.1 % (42.0-52.0); HEMOGLOBIN. 14.2 g/dL (14.0-18.0); MEAN CORPUSCULAR VOLUME 92.2 fL (80.0-94.0); MEAN PLATELET VOLUME 9.9 fl (7.4-10.4); PLATELET 217 x1000/uL (130-400); RED BLOOD CELL COUNT 4.57 mill/uL (4.7-6.1); RED CELL DISTRIBUTION WIDTH 12.9 % (11.6-14.6)
[2021-05-01 06:50] LABS: CHLORIDE 115 mEq/L (98-107)
[2021-05-01] MEDS: ENOXAPARIN 30MG/0.3ML SYR SUBCUT SCH ×2 (07:05→18:10)
[2021-05-01 08:40] LABS: PLATELET ESTIMATE NORMAL
[2021-05-01 08:43] LABS: BG BASE EXCESS -1.6 mmol/L (-2.0-2.0); BG CARBOXYHEMOGLOBIN 0.9 % (0.5-1.5); BG DEOXYHEMOGLOBIN 12.4 % (0.0-5.0); BG FRACTION INSPIRED OXYGEN 100; BG HCO3 ACT 23.4 mmol/L (22.0-26.0); BG METHEMOGLOBIN 0.1 % (0.0-1.5); BG OXYGEN SATURATION 87.5 % (92.0-98.5); BG OXYHEMOGLOBIN 86.6 % (94.0-97.0); BG PCO2 40.8 mmHg (35.0-45.0); BG PH 7.377 (7.350-7.450); BG SAMPLE SITE RIGHT RADIAL; BG TOTAL HEMOGLOBIN 14.8 g/dL (12.0-18.0); BG VENT MODE AC/PRVC
[2021-05-01] MEDS: PANTOPRAZOLE SODIUM 40 MG/VIAL IV SCH (09:36)
[2021-05-01] MEDS: DEXAMETHASONE 10 MG/ML VIAL IV SCH (09:36)
[2021-05-01] MEDS: SODIUM CHLORIDE 0.45% 1,000 ML IV SCH ×2 (09:37→18:10)
[2021-05-01] MEDS: INSULIN GLARGINE UD 100 UNITS/ML SYR SUBCUT SCH ×2 (09:42→22:42)
[2021-05-01] MEDS ORDERED: SODIUM CHLORIDE 0.45% 250 ML IV ONE (11:45)
[2021-05-01] MEDS: MIDAZOLAM HCL 100 MG in SODIUM CHLORIDE 0.9% 80 ML IV PRN (12:45)
[2021-05-01 13:03] LABS: PHOSPHORUS 2.7 mg/dL (2.5-4.9)
[2021-05-01] MEDS: FENTANYL CITRATE/PF 2,500 MCG in SODIUM CHLORIDE 0.9% 200 ML IV PRN (18:37)
[2021-05-02] VITALS (70 sets, daily range): BP systolic 80–146; BP diastolic 51–94
[2021-05-02] MEDS: PHENYLEPHRINE 100 MG in DEXT 5% WATER 240 ML IV PRN ×2 (04:00→12:20)
[2021-05-02] MEDS: SODIUM CHLORIDE 0.45% 1,000 ML IV SCH ×3 (04:01→23:47)
[2021-05-02] MEDS: MEROPENEM 1,000 MG in SODIUM CHLORIDE 0.9% 100 ML IV SCH ×3 (04:04→20:29)
[2021-05-02] MEDS: MIDAZOLAM HCL 100 MG in SODIUM CHLORIDE 0.9% 80 ML IV PRN (04:38)
[2021-05-02] MEDS: BLOOD SUGAR DIAGNOSTIC STRIP TEST SCH ×4 (05:58→23:39)
[2021-05-02] MEDS: ENOXAPARIN 30MG/0.3ML SYR SUBCUT SCH ×2 (05:59→17:50)
[2021-05-02] MEDS: INSULIN LISPRO 100 UNITS/ML SUBCUT SCH ×4 (06:18→23:46)
[2021-05-02 06:58] LABS: HEMATOCRIT. 37.2 % (42.0-52.0); HEMOGLOBIN. 12.5 g/dL (14.0-18.0); MEAN CORPUSCULAR HEMOGLOBIN 31.2 pg (28.0-32.0); MEAN CORPUSCULAR VOLUME 92.7 fL (80.0-94.0); PLATELET 185 x1000/uL (130-400); RED BLOOD CELL COUNT 4.01 mill/uL (4.7-6.1); RED CELL DISTRIBUTION WIDTH 12.6 % (11.6-14.6)
[2021-05-02 07:01] LABS: CHLORIDE 113 mEq/L (98-107)
[2021-05-02 08:26] LABS: PLATELET ESTIMATE NORMAL
[2021-05-02] MEDS: PANTOPRAZOLE SODIUM 40 MG/VIAL IV SCH (09:18)
[2021-05-02] MEDS: DEXAMETHASONE 10 MG/ML VIAL IV SCH (09:18)
[2021-05-02 09:27] LABS: BG BASE EXCESS 2.7 mmol/L (-2.0-2.0); BG CARBOXYHEMOGLOBIN 0.4 % (0.5-1.5); BG DEOXYHEMOGLOBIN 5.3 % (0.0-5.0); BG FRACTION INSPIRED OXYGEN 90; BG HCO3 ACT 27.2 mmol/L (22.0-26.0); BG METHEMOGLOBIN 0.2 % (0.0-1.5); BG OXYGEN SATURATION 94.7 % (92.0-98.5); BG OXYHEMOGLOBIN 94.1 % (94.0-97.0); BG PCO2 41.6 mmHg (35.0-45.0); BG PH 7.433 (7.350-7.450); BG PO2 73.5 mmHg (75.0-100.0); BG SAMPLE SITE RIGHT RADIAL; BG VENT MODE PRVC-AC
[2021-05-02] MEDS: INSULIN GLARGINE UD 100 UNITS/ML SYR SUBCUT SCH ×2 (10:59→22:08)
[2021-05-02] MEDS: ACETAMINOPHEN 325MG TABLET PO PRN (13:15)
[2021-05-02] MEDS ORDERED: VANCOMYCIN 1,750 MG in DEXT 5% WATER 500 ML IV NR (20:00)
[2021-05-02] MEDS: FENTANYL CITRATE/PF 2,500 MCG in SODIUM CHLORIDE 0.9% 200 ML IV PRN (21:42)
[2021-05-03] VITALS (92 sets, daily range): BP systolic 85–139; BP diastolic 62–81
[2021-05-03] MEDS: MEROPENEM 1,000 MG in SODIUM CHLORIDE 0.9% 100 ML IV SCH ×3 (04:10→21:20)
[2021-05-03] MEDS: BLOOD SUGAR DIAGNOSTIC STRIP TEST SCH ×3 (05:27→18:27)
[2021-05-03] MEDS: ENOXAPARIN 30MG/0.3ML SYR SUBCUT SCH ×2 (05:35→18:32)
[2021-05-03] MEDS: INSULIN LISPRO 100 UNITS/ML SUBCUT SCH ×3 (05:35→18:33)
[2021-05-03 06:57] LABS: CHLORIDE 113 mEq/L (98-107); HEMATOCRIT. 35.9 % (42.0-52.0); HEMOGLOBIN. 11.7 g/dL (14.0-18.0); MEAN CORPUSCULAR HEMOGLOBIN 30.2 pg (28.0-32.0); MEAN CORPUSCULAR VOLUME 92.8 fL (80.0-94.0); PLATELET 144 x1000/uL (130-400); RED BLOOD CELL COUNT 3.86 mill/uL (4.7-6.1); RED CELL DISTRIBUTION WIDTH 12.8 % (11.6-14.6)
[2021-05-03 08:41] LABS: NUCLEATED RED BLOOD CELLS 1 /100 WBC
[2021-05-03 08:42] LABS: PLATELET ESTIMATE NORMAL
[2021-05-03] MEDS: VANCOMYCIN 1250MG in DEXTROSE 5% WATER 250ML IV SCH ×2 (08:42→21:20)
[2021-05-03] MEDS: DEXAMETHASONE 10 MG/ML VIAL IV SCH (08:42)
[2021-05-03] MEDS: PANTOPRAZOLE SODIUM 40 MG/VIAL IV SCH (08:42)
[2021-05-03 08:45] LABS: BG BASE EXCESS 2.9 mmol/L (-2.0-2.0); BG CARBOXYHEMOGLOBIN 0.4 % (0.5-1.5); BG DEOXYHEMOGLOBIN 4.3 % (0.0-5.0); BG FRACTION INSPIRED OXYGEN 100; BG HCO3 ACT 29.2 mmol/L (22.0-26.0); BG METHEMOGLOBIN 0.1 % (0.0-1.5); BG OXYGEN SATURATION 95.7 % (92.0-98.5); BG OXYHEMOGLOBIN 95.2 % (94.0-97.0); BG PCO2 52.2 mmHg (35.0-45.0); BG PH 7.366 (7.350-7.450); BG PO2 84.7 mmHg (75.0-100.0); BG SAMPLE SITE RIGHT RADIAL; BG TOTAL HEMOGLOBIN 12.4 g/dL (12.0-18.0); BG TOTAL RESPIRATORY RATE 38 b/min; BG VENT MODE VENT- PRVC
[2021-05-03] MEDS: SODIUM CHLORIDE 0.45% 1,000 ML IV SCH ×2 (11:18→22:36)
[2021-05-03] MEDS: INSULIN GLARGINE UD 100 UNITS/ML SYR SUBCUT SCH ×2 (11:19→22:43)
[2021-05-03] MEDS: FENTANYL CITRATE/PF 2,500 MCG in SODIUM CHLORIDE 0.9% 200 ML IV PRN (15:18)
[2021-05-03] MEDS ORDERED: IPRATROPIUM/ALBUTEROL 0.5-3(2.5)MG/3ML NEB HHN PRN (15:30)
[2021-05-03] MEDS: MIDAZOLAM HCL 100 MG in SODIUM CHLORIDE 0.9% 80 ML IV PRN (19:33)
[2021-05-03] MEDS: IPRATROPIUM/ALBUTEROL 0.5-3(2.5)MG/3ML NEB HHN SCH (20:27)
[2021-05-03] MEDS ORDERED: NOREPINEPHRINE 8MG/250ML PMX 250 ML IV PRN (22:15)
[2021-05-04] VITALS (68 sets, daily range): BP systolic 83–123; BP diastolic 55–90
[2021-05-04] MEDS: INSULIN LISPRO 100 UNITS/ML SUBCUT SCH ×5 (00:31→23:10)
[2021-05-04] MEDS ORDERED: MIDAZOLAM 100MG/100ML PMX 100 ML IV PRN (02:00)
[2021-05-04] MEDS: IPRATROPIUM/ALBUTEROL 0.5-3(2.5)MG/3ML NEB HHN SCH ×4 (02:30→20:34)
[2021-05-04] MEDS: BLOOD SUGAR DIAGNOSTIC STRIP TEST SCH ×5 (05:19→23:10)
[2021-05-04] MEDS: ENOXAPARIN 30MG/0.3ML SYR SUBCUT SCH ×2 (05:19→17:18)
[2021-05-04] MEDS: MEROPENEM 1,000 MG in SODIUM CHLORIDE 0.9% 100 ML IV SCH ×3 (05:19→21:23)
[2021-05-04 06:39] LABS: CHLORIDE 110 mEq/L (98-107); HEMATOCRIT. 35.1 % (42.0-52.0); HEMOGLOBIN. 11.5 g/dL (14.0-18.0); MEAN CORPUSCULAR HEMOGLOBIN 30.1 pg (28.0-32.0); MEAN CORPUSCULAR VOLUME 91.9 fL (80.0-94.0); MEAN PLATELET VOLUME 10.8 fl (7.4-10.4); PLATELET 148 x1000/uL (130-400); RED BLOOD CELL COUNT 3.82 mill/uL (4.7-6.1); RED CELL DISTRIBUTION WIDTH 12.7 % (11.6-14.6)
[2021-05-04] MEDS: FENTANYL CITRATE/PF 2,500 MCG in SODIUM CHLORIDE 0.9% 200 ML IV PRN ×2 (08:00→20:57)
[2021-05-04 08:18] LABS: BG BASE EXCESS 4.2 mmol/L (-2.0-2.0); BG CARBOXYHEMOGLOBIN 0.5 % (0.5-1.5); BG DEOXYHEMOGLOBIN 6.5 % (0.0-5.0); BG HCO3 ACT 30.6 mmol/L (22.0-26.0); BG METHEMOGLOBIN 0.3 % (0.0-1.5); BG OXYGEN SATURATION 93.4 % (92.0-98.5); BG OXYHEMOGLOBIN 92.7 % (94.0-97.0); BG PCO2 54.7 mmHg (35.0-45.0); BG PH 7.366 (7.350-7.450); BG PO2 71.8 mmHg (75.0-100.0); BG SAMPLE SITE RIGHT RADIAL; BG TOTAL HEMOGLOBIN 11.9 g/dL (12.0-18.0); BG VENT MODE VENT- PRVC
[2021-05-04] MEDS: SODIUM CHLORIDE 0.45% 1,000 ML IV SCH ×3 (08:49→21:24)
[2021-05-04] MEDS: PANTOPRAZOLE SODIUM 40 MG/VIAL IV SCH (08:49)
[2021-05-04] MEDS: DEXAMETHASONE 10 MG/ML VIAL IV SCH (08:49)
[2021-05-04] MEDS: INSULIN GLARGINE UD 100 UNITS/ML SYR SUBCUT SCH ×2 (08:50→21:25)
[2021-05-04] MEDS: VANCOMYCIN 1250MG in DEXTROSE 5% WATER 250ML IV SCH ×2 (08:51→16:27)
[2021-05-04 09:09] LABS: NUCLEATED RED BLOOD CELLS 1 /100 WBC; PLATELET ESTIMATE NORMAL
[2021-05-04] MEDS: MIDAZOLAM HCL 100 MG in SODIUM CHLORIDE 0.9% 100 ML IV PRN ×2 (12:30→22:11)
[2021-05-04] MEDS: PHENYLEPHRINE 100 MG in DEXT 5% WATER 240 ML IV PRN (19:38)
[2021-05-05] VITALS (97 sets, daily range): BP systolic 80–132; BP diastolic 49–87
[2021-05-05] MEDS: VANCOMYCIN 1250MG in DEXTROSE 5% WATER 250ML IV SCH ×3 (00:33→16:11)
[2021-05-05] MEDS: IPRATROPIUM/ALBUTEROL 0.5-3(2.5)MG/3ML NEB HHN SCH ×4 (02:03→20:08)
[2021-05-05] MEDS: MEROPENEM 1,000 MG in SODIUM CHLORIDE 0.9% 100 ML IV SCH ×3 (04:56→22:19)
[2021-05-05] MEDS: BLOOD SUGAR DIAGNOSTIC STRIP TEST SCH ×3 (05:05→18:01)
[2021-05-05] MEDS: INSULIN LISPRO 100 UNITS/ML SUBCUT SCH ×3 (05:05→18:05)
[2021-05-05] MEDS: ENOXAPARIN 30MG/0.3ML SYR SUBCUT SCH ×2 (05:07→18:06)
[2021-05-05 07:35] LABS: HEMATOCRIT. 33.8 % (42.0-52.0); MEAN CORPUSCULAR HEMOGLOBIN 30.2 pg (28.0-32.0); MEAN PLATELET VOLUME 10.8 fl (7.4-10.4); PLATELET 171 x1000/uL (130-400); RED BLOOD CELL COUNT 3.64 mill/uL (4.7-6.1); RED CELL DISTRIBUTION WIDTH 12.8 % (11.6-14.6)
[2021-05-05 07:37] LABS: CHLORIDE 108 mEq/L (98-107)
[2021-05-05] MEDS: PANTOPRAZOLE SODIUM 40 MG/VIAL IV SCH (08:14)
[2021-05-05] MEDS: DEXAMETHASONE 10 MG/ML VIAL IV SCH (08:14)
[2021-05-05] MEDS: INSULIN GLARGINE UD 100 UNITS/ML SYR SUBCUT SCH ×2 (09:27→22:00)
[2021-05-05] MEDS: MIDAZOLAM HCL 100 MG in SODIUM CHLORIDE 0.9% 100 ML IV PRN ×2 (09:38→20:27)
[2021-05-05] MEDS ORDERED: SODIUM POLYSTYRENE SULFONATE 15 G/60 ML BOT PO NR (10:00)
[2021-05-05] MEDS: FENTANYL CITRATE/PF 2,500 MCG in SODIUM CHLORIDE 0.9% 200 ML IV PRN (11:08)
[2021-05-05 11:16] LABS: BG BASE EXCESS 5.5 mmol/L (-2.0-2.0); BG CARBOXYHEMOGLOBIN 0.9 % (0.5-1.5); BG DEOXYHEMOGLOBIN 14.1 % (0.0-5.0); BG FRACTION INSPIRED OXYGEN 100; BG HCO3 ACT 31.2 mmol/L (22.0-26.0); BG METHEMOGLOBIN 0.1 % (0.0-1.5); BG OXYGEN SATURATION 85.8 % (92.0-98.5); BG OXYHEMOGLOBIN 84.9 % (94.0-97.0); BG PCO2 50.2 mmHg (35.0-45.0); BG PH 7.411 (7.350-7.450); BG PO2 50.4 mmHg (75.0-100.0); BG SAMPLE SITE RIGHT RADIAL; BG VENT MODE VENT - PRVC
[2021-05-05] MEDS: MIDODRINE HCL 5MG TABLET PO SCH ×2 (11:54→16:12)
[2021-05-05] MEDS: SODIUM CHLORIDE 0.45% 1,000 ML IV SCH (13:35)
[2021-05-05 17:16] LABS: PLATELET ESTIMATE NORMAL
[2021-05-06] VITALS (113 sets, daily range): BP systolic 64–223; BP diastolic 26–164
[2021-05-06] MEDS: FENTANYL CITRATE/PF 2,500 MCG in SODIUM CHLORIDE 0.9% 200 ML IV PRN ×3 (00:32→23:34)
[2021-05-06] MEDS: BLOOD SUGAR DIAGNOSTIC STRIP TEST SCH ×4 (00:33→18:40)
[2021-05-06] MEDS: VANCOMYCIN 1250MG in DEXTROSE 5% WATER 250ML IV SCH ×2 (00:33→09:10)
[2021-05-06] MEDS: SODIUM CHLORIDE 0.45% 1,000 ML IV SCH ×3 (04:11→18:37)
[2021-05-06] MEDS: MEROPENEM 1,000 MG in SODIUM CHLORIDE 0.9% 100 ML IV SCH ×3 (04:20→21:23)
[2021-05-06] MEDS: ENOXAPARIN 30MG/0.3ML SYR SUBCUT SCH ×2 (05:43→18:39)
[2021-05-06] MEDS: INSULIN LISPRO 100 UNITS/ML SUBCUT SCH ×4 (05:43→18:00)
[2021-05-06 05:52] LABS: HEMATOCRIT. 34.3 % (42.0-52.0); HEMOGLOBIN. 10.8 g/dL (14.0-18.0); MEAN CORPUSCULAR HEMOGLOBIN 29.7 pg (28.0-32.0); MEAN CORPUSCULAR VOLUME 94.3 fL (80.0-94.0); MEAN PLATELET VOLUME 10.5 fl (7.4-10.4); PLATELET 186 x1000/uL (130-400); RED BLOOD CELL COUNT 3.64 mill/uL (4.7-6.1)
[2021-05-06 05:54] LABS: CHLORIDE 106 mEq/L (98-107)
[2021-05-06] MEDS: PHENYLEPHRINE 100 MG in DEXT 5% WATER 240 ML IV PRN (06:41)
[2021-05-06] MEDS ORDERED: DOPAMINE 400MG/250ML PREMIX 250 ML IV PRN (06:45)
[2021-05-06] MEDS: NOREPINEPHRINE 8 MG in DEXT 5% WATER 242 ML IV PRN ×2 (07:01→16:45)
[2021-05-06] MEDS ORDERED: SORBITOL 70% SOLN 30ML PO NR (07:45)
[2021-05-06] MEDS: PANTOPRAZOLE SODIUM 40 MG/VIAL IV SCH (08:06)
[2021-05-06] MEDS: MIDODRINE HCL 5MG TABLET PO SCH ×3 (08:07→18:39)
[2021-05-06] MEDS: DEXAMETHASONE 10 MG/ML VIAL IV SCH (08:07)
[2021-05-06] MEDS: MIDAZOLAM HCL 100 MG in SODIUM CHLORIDE 0.9% 100 ML IV PRN ×3 (08:08→21:33)
[2021-05-06] MEDS: IPRATROPIUM/ALBUTEROL 0.5-3(2.5)MG/3ML NEB HHN SCH ×3 (08:13→14:32)
[2021-05-06] MEDS: INSULIN GLARGINE UD 100 UNITS/ML SYR SUBCUT SCH ×2 (10:25→21:32)
[2021-05-06 10:26] LABS: BG BASE EXCESS 1.7 mmol/L (-2.0-2.0); BG CARBOXYHEMOGLOBIN 0.7 % (0.5-1.5); BG DEOXYHEMOGLOBIN 6.6 % (0.0-5.0); BG FRACTION INSPIRED OXYGEN 100; BG HCO3 ACT 26.9 mmol/L (22.0-26.0); BG METHEMOGLOBIN 0.3 % (0.0-1.5); BG OXYGEN SATURATION 93.3 % (92.0-98.5); BG OXYHEMOGLOBIN 92.4 % (94.0-97.0); BG PCO2 44.6 mmHg (35.0-45.0); BG PH 7.398 (7.350-7.450); BG PO2 70.1 mmHg (75.0-100.0); BG SAMPLE SITE LEFT RADIAL; BG TOTAL HEMOGLOBIN 12.2 g/dL (12.0-18.0); BG VENT MODE VENT - AC
[2021-05-06] MEDS: METOCLOPRAMIDE HCL 10MG/2ML VIAL IV SCH ×2 (12:02→18:39)
[2021-05-06] MEDS ORDERED: IOHEXOL-350 100 ML BOTTLE ONE (14:51)
[2021-05-06 15:40] LABS: PLATELET ESTIMATE NORMAL
[2021-05-06] MEDS: LACTULOSE 20G/30ML UDC PO SCH (21:24)
[2021-05-06] MEDS: VANCOMYCIN 1 G PREMIX 200 ML IV SCH (22:55)
[2021-05-06] MEDS: PROPOFOL 10MG/ML 100ML 100 ML IV PRN (23:49)
[2021-05-07] VITALS (98 sets, daily range): BP systolic 76–142; BP diastolic 45–90
[2021-05-07] MEDS: IPRATROPIUM/ALBUTEROL 0.5-3(2.5)MG/3ML NEB HHN SCH ×4 (00:13→20:00)
[2021-05-07] MEDS: BLOOD SUGAR DIAGNOSTIC STRIP TEST SCH ×4 (00:33→18:20)
[2021-05-07] MEDS: METOCLOPRAMIDE HCL 10MG/2ML VIAL IV SCH ×4 (00:39→17:05)
[2021-05-07] MEDS: PROPOFOL 10MG/ML 100ML 100 ML IV PRN ×5 (03:52→21:43)
[2021-05-07] MEDS: MEROPENEM 1,000 MG in SODIUM CHLORIDE 0.9% 100 ML IV SCH ×3 (03:56→21:19)
[2021-05-07] MEDS: SODIUM CHLORIDE 0.45% 1,000 ML IV SCH ×2 (03:56→13:51)
[2021-05-07] MEDS: MIDAZOLAM HCL 100 MG in SODIUM CHLORIDE 0.9% 100 ML IV PRN ×3 (05:35→18:54)
[2021-05-07] MEDS: INSULIN LISPRO 100 UNITS/ML SUBCUT SCH ×4 (06:00→18:00)
[2021-05-07] MEDS: VANCOMYCIN 1 G PREMIX 200 ML IV SCH ×3 (06:39→22:44)
[2021-05-07] MEDS: ENOXAPARIN 30MG/0.3ML SYR SUBCUT SCH ×2 (06:39→17:05)
[2021-05-07] MEDS: LACTULOSE 20G/30ML UDC PO SCH ×3 (06:39→22:44)
[2021-05-07 08:36] LABS: CHLORIDE 107 mEq/L (98-107)
[2021-05-07 08:41] LABS: HEMATOCRIT. 34.7 % (42.0-52.0); HEMOGLOBIN. 11.1 g/dL (14.0-18.0); MEAN CORPUSCULAR HEMOGLOBIN 29.8 pg (28.0-32.0); MEAN CORPUSCULAR VOLUME 93.3 fL (80.0-94.0); MEAN PLATELET VOLUME 10.3 fl (7.4-10.4); PLATELET 241 x1000/uL (130-400); RED BLOOD CELL COUNT 3.72 mill/uL (4.7-6.1); RED CELL DISTRIBUTION WIDTH 12.6 % (11.6-14.6)
[2021-05-07] MEDS: MIDODRINE HCL 5MG TABLET PO SCH ×3 (08:41→17:05)
[2021-05-07] MEDS: DEXAMETHASONE 10 MG/ML VIAL IV SCH (08:41)
[2021-05-07] MEDS: PANTOPRAZOLE SODIUM 40 MG/VIAL IV SCH (08:41)
[2021-05-07 09:21] LABS: BG CARBOXYHEMOGLOBIN 0.8 % (0.5-1.5); BG DEOXYHEMOGLOBIN 15.5 % (0.0-5.0); BG FRACTION INSPIRED OXYGEN 100; BG HCO3 ACT 32.5 mmol/L (22.0-26.0); BG METHEMOGLOBIN 0.1 % (0.0-1.5); BG OXYGEN SATURATION 84.4 % (92.0-98.5); BG OXYHEMOGLOBIN 83.6 % (94.0-97.0); BG PCO2 56.4 mmHg (35.0-45.0); BG PH 7.379 (7.350-7.450); BG PO2 50.3 mmHg (75.0-100.0); BG SAMPLE SITE RIGHT RADIAL; BG TOTAL HEMOGLOBIN 12.3 g/dL (12.0-18.0); BG VENT MODE VENT - PRVC
[2021-05-07 10:58] LABS: PLATELET ESTIMATE NORMAL
[2021-05-07] MEDS: INSULIN GLARGINE UD 100 UNITS/ML SYR SUBCUT SCH ×2 (11:01→22:00)
[2021-05-07] MEDS: FENTANYL CITRATE/PF 2,500 MCG in SODIUM CHLORIDE 0.9% 200 ML IV PRN ×2 (14:28→22:02)
[2021-05-08] VITALS (33 sets, daily range): BP systolic 48–133; BP diastolic 22–86
[2021-05-08] MEDS: INSULIN LISPRO 100 UNITS/ML SUBCUT SCH
[2021-05-08] MEDS: BLOOD SUGAR DIAGNOSTIC STRIP TEST SCH
[2021-05-08] MEDS: PROPOFOL 10MG/ML 100ML 100 ML IV PRN ×2 (00:21→03:29)
[2021-05-08] MEDS: METOCLOPRAMIDE HCL 10MG/2ML VIAL IV SCH (01:18)
[2021-05-08] MEDS: SODIUM CHLORIDE 0.45% 1,000 ML IV SCH (01:18)
[2021-05-08] MEDS: NOREPINEPHRINE 8 MG in DEXT 5% WATER 242 ML IV PRN (01:24)
[2021-05-08] MEDS: IPRATROPIUM/ALBUTEROL 0.5-3(2.5)MG/3ML NEB HHN SCH (01:58)
[2021-05-08] MEDS: MIDAZOLAM HCL 100 MG in SODIUM CHLORIDE 0.9% 100 ML IV PRN (02:30)
[2021-05-08] MEDS ORDERED: MEROPENEM 1,000 MG in SODIUM CHLORIDE 0.9% 100 ML IV SCH (04:00)
[2021-05-08] MEDS: FENTANYL CITRATE/PF 2,500 MCG in SODIUM CHLORIDE 0.9% 200 ML IV PRN (05:01)
[2021-05-08] MEDS ORDERED: VASOPRESSIN 20 UNIT in SODIUM CHLORIDE 0.9% 99 ML IV PRN (06:15)
[2021-05-08] MEDS ORDERED: EPINEPHRINE 10 MG in SODIUM CHLORIDE 0.9% 240 ML IV PRN (06:15)
[2021-05-08 06:19] LABS: HEMATOCRIT. 32.7 % (42.0-52.0); HEMOGLOBIN. 10.8 g/dL (14.0-18.0); MEAN CORPUSCULAR HEMOGLOBIN 30.7 pg (28.0-32.0); MEAN CORPUSCULAR VOLUME 93.2 fL (80.0-94.0); MEAN PLATELET VOLUME 9.8 fl (7.4-10.4); PLATELET 255 x1000/uL (130-400); RED BLOOD CELL COUNT 3.51 mill/uL (4.7-6.1); RED CELL DISTRIBUTION WIDTH 12.9 % (11.6-14.6)
[2021-05-08 06:20] LABS: CHLORIDE 108 mEq/L (98-107)
[2021-05-08 08:08] LABS: NUCLEATED RED BLOOD CELLS 3 /100 WBC; PLATELET ESTIMATE NORMAL
[2021-05-08] MEDS ORDERED: CALCIUM CHLORIDE 1GM/10ML SYR IV ONE (08:51)
[2021-05-08] MEDS ORDERED: EPINEPHRINE 0.1MG/ML (1:10,000) 10ML SYR ONE (08:51)
[2021-05-08] MEDS ORDERED: SODIUM BICARBONATE 8.4% 1 MEQ/ML 50ML SYR IV ONE (08:51)
[2021-05-08] MEDS ORDERED: ATROPINE SULFATE 1MG/10ML SYR ONE (08:51)
[2021-05-08] MEDS ORDERED: DEXTROSE 50% WATER 50ML SYRINGE IV ONE (08:51)
[2021-05-08] MEDS ORDERED: VANCOMYCIN 1 G PREMIX 200 ML IV SCH (10:00)
== END 2021-05-08 06:31 | DRG 720 ==
LOC: ER 08:04 → 7WST 09:29 → EDBEDREQSVC 09:41 → EDBEDREQ 09:41 → EDBEDREQTM 09:41 → ENRESERV 14:06 → CVICU 04-28 23:00
PROVIDERS: ADMIT Internal Medicine; ATTEND Internal Medicine
PROC: 5A09557 Assistance with Respiratory Ventilation, Greater than 96 Consecutive Hours, Continuous Positive Airway Pressure (ICD-10-PCS; 2021-04-22)
PROC: 0BH17EZ Insertion of Endotracheal Airway into Trachea, Via Natural or Artificial Opening (ICD-10-PCS; principal; 2021-04-28)
PROC: 5A1955Z Respiratory Ventilation, Greater than 96 Consecutive Hours (ICD-10-PCS; 2021-04-28)
PROC: 02HV33Z Insertion of Infusion Device into Superior Vena Cava, Percutaneous Approach (ICD-10-PCS; 2021-04-29)
PROC: B548ZZA Ultrasonography of Superior Vena Cava, Guidance (ICD-10-PCS; 2021-04-29)
PROC: 5A12012 Performance of Cardiac Output, Single, Manual (ICD-10-PCS; 2021-05-08)
DX: A41.89 Other specified sepsis (principal); J96.01 Acute respiratory failure with hypoxia; J12.82 Pneumonia due to coronavirus disease 2019; J98.2 Interstitial emphysema; R65.21 Severe sepsis with septic shock; E44.1 Mild protein-calorie malnutrition; U07.1 COVID-19; E87.0 Hyperosmolality and hypernatremia; I46.9 Cardiac arrest, cause unspecified; E86.1 Hypovolemia; R00.1 Bradycardia, unspecified; E66.9 Obesity, unspecified; B95.4 Other streptococcus as the cause of diseases classified elsewhere; E87.5 Hyperkalemia; N39.0 Urinary tract infection, site not specified; K59.00 Constipation, unspecified; B97.89 Other viral agents as the cause of diseases classified elsewhere; E11.65 Type 2 diabetes mellitus with hyperglycemia; Z79.4 Long term (current) use of insulin; Z68.33 Body mass index [BMI] 33.0-33.9, adult; Z88.0 Allergy status to penicillin; Z88.1 Allergy status to other antibiotic agents; Z79.2 Long term (current) use of antibiotics; Z79.899 Other long term (current) drug therapy; Z78.1 Physical restraint status
CPT/HCPCS: 31500; 36415; 36600; 71045; 71275; 74018; 76937; 78580; 80048; 80053; 80061; 80202; 81003; 82375; 82550; 82728; 82805; 82962; 83036; 83605; 83615; 83735; 83880; 84100; 84145; 84443; 84478; 84484; 85025; 85379; 85384; 86140; 87070; 87426; 93005; 93306; 93970; 94002; 94003; 94640; 94660; 99291; C1725; C9113; J0330; J0456; J0461; J0692; J0696; J1100; J1265; J1650; J1815; J2185; J2250; J2370; J2704; J2765; J3010; J3370; J3490; J7030; J7040; J7042; J7050; J7060; Q9967